=== PATIENT | male | born 1985 | race Caucasian/White ===

== ENCOUNTER 2020-10-10 06:46 | Day surgery (SDC) | payer OTHER, SELFPAY ==
[2020-10-10] VITALS (12 sets, daily range): BP systolic 130–146; BP diastolic 78–93; PULSE 50–92; RESP 12–21; TEMP 36.2–36.6; O2SAT 94–98
--- NOTE | 2020-10-10 | SCC_ITS ---
Procedure Done: 1. L5/S1 bilateral laminectomy with partial facetectomies 8.7 seconds of fluoroscopic guidance, for a cumulative dose of 7.53 mGy, was provided to Dr. Clemons by the radiology department. C-arm images of the lumbar spine were saved for the patient's permanent record. [facility]
--- NOTE | 2020-10-10 | XR_ITS ---
WS: [id number] Lumbar spine, C-arm fluoroscopy, 10/10/2020 Clinical Data: decompression l5/s1 Comparison: Lumbar spine, 11/04/2019. Findings: Dr. Clemons performed a L5-S1 decompression. XR/XR lumbar spine 2-3V* [id number] Impression: Lumbar decompression.
[2020-10-10] MEDS: fentaNYL 50 mcg/mL INJ 2mL 100 MCG IVP (08:29)
[2020-10-10] MEDS: sodium chloride 0.9% 1,000 ML 30 ML IV (08:29)
--- NOTE | 2020-10-10 08:46 | W.PM.OPSUD ---
Surgery/Procedure H&P Update DATE OF PROCEDURE: October 10, 2020 DATE H&P PERFORMED: 09/20/20 H&P UPDATE INFORMATION: I have reviewed H&P completed within last 30 days, I have examined patient prior to procedure and No changes to prior documentation PREOP DIAGNOSIS: lumbar stenosis PLANNED PROCEDURE: Operation Date: 10/10/20 09:05 Proposed Procedures p bilateral decompression L5/S1 98244 M48.061(Bilateral) - Vinicio Clemons DO
[2020-10-10] MEDS: fentaNYL 50 mcg/mL INJ 2mL IVP ×3 (09:12→11:26)
--- NOTE | 2020-10-10 11:00 | P.OP_ITS ---
Operative Report Date of procedure: October 10, 2020 Pre-op Diagnosis: lumbar stenosis Post-op diagnosis: same Procedure Done: 1. L5/S1 bilateral laminectomy with partial facetectomies Surgeon: Vinicio Clemons Anesthesia: General Estimated blood loss (mL): 5 Condition: stable Disposition: PACU Procedure: 1. L5/S1 bilateral laminectomy with partial facetectomies Patient is brought to the operative suite. After undergoing anesthesia they are placed in the supine position. All areas of impingement are well padded. Patient is then prepped and draped in the normal sterile fashion. A skin incision is made over the L5/S1 level. This is confirmed under c-arm guidance. A series of dilators are passed and the tubular retractor is docked on the L5 lamina. A bovie is used to clear the soft tissue off the lamina and the L 5/S1 facet joint. A high speed елена is then used to perform the laminectomy and take down the medial aspect of the L 5/S1 facet joint. A kerrison rongeure was then used to take down the remaining lamina and smooth the edged of the laminectomy up to the point where the ligamentum flavum attaches. Attention was then brought to the medial aspect of the facet joint. The remaining medial aspect of the superior and inferior aspect of the facet joint were taken down with the kerrison from the pedicle of L5 to S1. The facet joint had significant hypertrophy. Attention was then brought to the Ligamentum Flavum. The ligament was taken down from the lamina of L5 to S1 and out medially to the remaining facet joint. The ligament was thick. The dura was then exposed. The dura was in good repair. The L5 nerve was then traced with a curette out the L5/S1 foramen and found to be adequately decompressed. The S1 nerve was traced with a curette around the S1 pedicle. The lateral recess was opened with a kerrison helping to further decompress the S1 nerve. The tubular retractor was then tilted to the contralateral side. The bovie was used to take down the soft tissue on the spinous process. The high speed елена was used to take down the spinous process and then the contralateral lamina of L5. The kerrison rongeur was used to take down the remaining lamina to the point where the ligamentum flavum attached and the ligamentum flavum was taken down from L5 to S1. The kerrison rongeur was then used to reach across and take down the medial aspect of the contralateral L5/S1 facet joint.The currete was used to trace the contralateral L5 nerve out the L5/S1 foramen to make sure it was decompressed adequatesly and the S1 was traced around the S1 pedicle. The lateral recess was opened further with the kerrison to ensure the S1 is adequ ately decompressed. Wound is then irrigated copiously with saline and surgiflo is used to stop any bleeding. The tubular retractor is removed and the wound is closed with vicryl and monocryl suture. Glue is then used to protect the wound. A sterile dressing is then placed. Patient was then placed in the supine position and transferred to the PACU in stable condition.
--- NOTE | 2020-10-10 11:09 | P.PCN_ITS ---
PACU note PACU note: VSS, Good respiratory effort, report to ASSEMBLING FABRICATOR Post-Anesthesia Exam: awake
--- NOTE | 2020-10-10 11:09 | PM.PACU ---
PACU note PACU note: VSS, Good respiratory effort, report to ASSOCIATE PROFESSOR OF LITERACY Post-Anesthesia Exam: awake
--- NOTE | 2020-10-10 11:12 | P.ANESASSM_ITS ---
Pre-Anesthetic Assessment Pre-Anesthetic Assessment: Height/Weight: Height 1.8 m Temp Pulse Resp BP Pulse Ox 97.5 F L 92 14 141/92 98 10/10/20 07:40 10/10/20 07:40 10/10/20 09:12 10/10/20 07:40 10/10/20 09:12 Preop Diagnosis: lumbar stenosis Proposed Procedure: Operation Date: 10/10/20 09:05 Proposed Procedures p bilateral decompression L5/S1 [id number] M48.061(Bilateral) - Vinicio Clemons, DO Was Beta Flash taken within 24 hours: N/A Was Clonidine taken within 24 hours: N/A Last intake: Intake Last Liquid Date 10/09/20 Last Liquid Time 21:00 Last Solid Date 10/09/20 Last Solid Time 20:00 Social: Social History: No alcohol and No tobacco Exam: Pre-Anes Outpt Exam: alert, oriented x 3, clear to auscultation bilaterally and regular rate & rhythm Airway: Submandibular: WNL Cervical ROM: WNL MP: 2 Dentition: Full GI: GI: GERD Metabolic: Metabolic: Morbid obesity Musc/skel: Musc/skel: OA/DJD Neuropsych: Neuropsych: Depression Anesthetic Plan: ASA status: 3 Anesthesia: General Risk of > 500 ml blood loss (7ml/kg in children): No Meds/Allergies 2 Current Medications: Current Medications Generic Name Dose Route Start Last Admin Trade Name Freq PRN Reason Stop Dose Admin Fentanyl 50 mcg 10/10/20 07:40 10/10/20 09:12 Fentanyl 50 Mcg/ Ml Inj 2ml IVP 50 mcg Q10M PRN Administration Preop Pain Sodium Chloride 1,000 mls @ 30 ml s/hr 10/10/20 07:45 10/10/20 08:29 Sodium Chloride 0.9% IV 10/11/20 07:44 30 mls/hr .Q24H ALONDRA Administration PFSH Anesthesia PFSH: Social History (Updated 09/20/20 @ 08:58 by Chris Dobbins LPN) Smoking and tobacco status: never smoked Alcohol intake: never Data Anesthesia Cardiac Studies: No Data to Display
[2020-10-10] MEDS: HYDROcodone-acetaminophen 5-325 mg Tablet 1 TAB PO (12:10)
--- NOTE | 2020-10-10 17:10 | ANE.PACU2 ---
Inpatient post-anesthesia follow up: Airway intact: Yes Vital signs: Temperature 97.5 F Pulse Rate 56 Respiratory Rate 18 Blood Pressure 138/85 Pulse Oximetry 97 Oxygen Delivery Me thod Room Air Oxygen Flow Rate 8 Fraction of Inspir ed Oxygen Hydration adequate: Yes Nausea and vomiting: No Pain level: 1 Mental status: Baseline
== END 2020-10-10 12:35 | disposition home or self-care (01) ==
PROVIDERS: Visit Provider Orthopaedic Surgery
PROC: (CPT 63005; principal; 2020-10-10 08:45)
DX: M48.061 Spinal stenosis, lumbar region without neurogenic claudication (principal)
CPT/HCPCS: 63047; 72100; 76000; 96374; 96375; J0690; J1100; J2405; J2704; J2710; J3010; J3490; J7030